=== PATIENT | female | born 1965 ===

== ENCOUNTER 2025-01-24 07:59 | Day surgery (SDC) | payer OTHER ==
[2025-01-24] MEDS ORDERED: Sodium Chloride 0.9% 10 ML Syringe FLUSH PRN (08:00)
[2025-01-24] MEDS ORDERED: Midazolam 1 MG/ML 2 ML SDV ONE (08:26)
[2025-01-24] MEDS ORDERED: Propofol 200 MG/20 ML SDV ONE (08:26)
[2025-01-24] MEDS: Lactated Ringers 1,000 ML IV SCH (08:43)
== END 2025-01-24 11:00 | disposition home or self-care (01) ==
LOC: LL.SDS 07:59
PROVIDERS: ATTEND Surgery
DX: Z12.11 Encounter for screening for malignant neoplasm of colon (principal); Z79.899 Other long term (current) drug therapy
CPT/HCPCS: 45378; J2250; J2704; J7120